=== PATIENT | female | born 1965 | race Caucasian/White ===

== ENCOUNTER → 2017-02-05 | Outpatient (CLI) | payer OTHER | LOC: FIMAGING 14:31 | DX: Z12.31 Encounter for screening mammogram for malignant neoplasm of breast (principal) | CPT/HCPCS: G0202 ==

== ENCOUNTER 2017-06-15 16:26 | Emergency (ER) | payer OTHER ==
[2017-06-15 16:41] VITALS: TEMP 97.9; O2SAT 99
--- NOTE | 2017-06-15 16:56 | CPEKG ---
Heart Rate: 60 RR Interval: 1000 P-R Interval: 176 QRSD Interval: 86 QT Interval: 424 QTC Interval: 424 P Malden: 73 QRS Malden: 65 T Wave Malden: 57 EKG Severity - ABNORMAL ECG - EKG Impression: SINUS RHYTHM Electronically Signed By: Dary Lin 15-Jun-2017 23:18:43
[2017-06-15] MEDS ORDERED: DIAZEPAM 10 MG/2 ML SYR IVP ONE (17:25)
--- NOTE | 2017-06-15 17:26 | EDPHY ---
H & P Stated Complaint: hx menieres became dizzy/nausea/tingling in bilat arms and feet/now resolve Time Seen by Provider: 06/15/17 17:00 HPI/ROS: CHIEF COMPLAINT: Dizziness, bilateral extremity numbness HISTORY OF PRESENT ILLNESS: The patient is a 51 y/o female with a history of M nire's disease complaining of waxing and waning worsening dizziness onset around 14:30 today, about 3.5 hours ago. She's experienced dizziness and vertigo in the past that usually resolves after about 1 minute, but the episodes today did not resolve and became more severe over time. She then developed bilateral hand and toe tingling that was also present around her mouth prompting her to come to the ED. The paresthesias lasted for a few minutes before spontaneously resolving and she does not think she was hyperventilating at that time. She was working around the house when her symptoms started and she cannot identify a specific preceding movement that precipitated her symptoms. Her dizziness has continued and is aggravated with any movement of her head or eyes and alleviated by lying still. She took Dramamine without alleviation. She otherwise felt well today and has been eating and drinking normally. REVIEW OF SYSTEMS: Constitutional: No fever, no chills Eyes: No visual changes ENT: No sore throat Respiratory: No cough, no shortness of breath Cardiac: No chest pain Gastrointestinal: No nausea, no vomiting, no abdominal pain Genitourinary: No hematuria, no dysuria Musculoskeletal: No leg pain or swelling Skin: No rash Neurological: see HPI Psychiatric: No depression - Personal History LMP (Females 10-55): Post Menopausal Current Tetanus/Diphtheria Vaccine: Yes - Medical/Surgical History Hx Asthma: No Hx Chronic Respiratory Disease: No Hx Diabetes: No Hx Cardiac Disease: No Hx Renal Disease: No Hx Cirrhosis: No Hx Alcoholism: No Hx HIV/AIDS: No Hx Splenectomy or Spleen Trauma: No Other PMH: menieres disease/vertigo - Social History Smoking Status: Never smoked Additional Social History: Nonsmoker. at bedside. Lives in [place]. PCP: Dr. Jimenez. - Physical Exam Exam: General Appearance: Alert, no distress Eyes: Pupils equal and round, no conjunctival pallor or injection, no nystagmus. ENT, Mouth: Mucous membranes moist Neck: Normal inspection Respiratory: Lungs are clear to auscultation Cardiovascular: Regular rate and rhythm Gastrointestinal: Abdomen is soft and non- tender Neurological: A&O, nonfocal, normal gait Skin: Warm and dry, no rash Extremities: Nontender, no pedal edema Psychiatric: Mood and affect normal Constitutional: Initial Vital Signs Temperature (C) 36.6 C 06/15/17 16:38 Heart Rate 60 06/15/17 16:38 Respiratory Rate 20 06/15/17 16:38 Blood Pressure 141/91 H 06/15/17 16:38 O2 Sat (%) 99 06/15/17 16:38 O2 Delivery Mode Room Air Allergies/Adverse Reactions: No Known Allergies Allergy (Unverified 06/15/17 16:37) Home Medications: Medication Instructions Recorded Bonine 06/15/17 Diazepam [Valium 10 MG (*)] 10 mg PO Q8 PRN #10 tab 06/15/17 Diazide 06/15/17 Medical Decision Making ED Course/Re-evaluation: This is a healthy 51 y/o female with a history of Mnire's disease who presents with a 3.5-hour history of vertiginous symptoms and a brief episode of now resolved paresthesias in both hands, toes, and around her mouth. Apart from being reluctant to move her head, her exam is unremarkable. Her symptoms are consistent with positional vertigo and hyperventilation. Plan for IV, labs, EKG , and symptom management. Since she already took Dramamine today, we will hold Meclizine. 2.5mg IV Valium administered. The 12 lead EKG was interpreted by myself. Sinus rhythm rate 60. See hard copy and/or "tracemaster" electronic copy for interpretation. 1820: Reevaluated patient. She is feeling improved after the Valium. She will be discharged home with standard vertigo care and follow up instructions. Return precautions given. She is comfortable with this plan. Differential Diagnosis: Dizziness including but not limited to peripheral and central causes of vertigo , orthostatic causes including dehydration, and blood loss. - Data Points Laboratory Results: Laboratory Results 06/15/17 16:59 06/15/17 16:59 06/15/17 06/15/17 16:59 16:59 WBC 8.37 10^3/uL 10^3/uL (3.80-9.50) RBC 4.18 10^6/uL 10^6/uL (4.18-5.33) Hgb 13.4 g/dL g/dL (12.6-16.3) Hct 38.5 % % (38.0-47.0) MCV 92.1 fL fL (81.5-99.8) MCH 32.1 pg pg (27.9-34.1) MCHC 34.8 g/dL g/dL (32.4-36.7) RDW 11.8 % % (11.5-15.2) Plt Count 302 10^3/uL 10^3/uL (150-400) MPV 8.9 fL fL (8.7-11.7) Neut % (Auto) 67.6 % % (39.3-74.2) Lymph % (Auto) 22.6 % % (15.0-45.0) Izard % (Auto) 7.9 % % (4.5-13.0) Eos % (Auto) 0.8 % % (0.6-7.6) Baso % (Auto) 0.7 % % (0.3-1.7) Nucleat RBC Rel Count 0.0 % % (0.0-0.2) Absolute Neuts (auto) 5.66 10^3/uL 10^3/uL (1.70-6.50) Absolute Lymphs (auto) 1.89 10^3/uL 10^3/uL (1.00-3.00) Absolute Monos (auto) 0.66 10^3/uL 10^3/uL (0.30-0.80) Absolute Eos (auto) 0.07 10^3/uL 10^3/uL (0.03-0.40) Absolute Basos (auto) 0.06 10^3/uL 10^3/uL (0.02-0.10) Absolute Nucleated RBC 0.00 10^3/uL 10^3/uL (0-0.01) Immature Gran % 0.4 % % (0.0-1.1) Immature Gran # 0.03 10^3/uL 10^3/uL (0.00-0.10) Sodium 134 mEq/L mEq/L (134-144) Potassium 3.3 mEq/L L mEq/L (3.5-5.2) Chloride 97 mEq/L mEq/L (97-110) Carbon Dioxide 24 mEq/l mEq/l (22-31) Anion Gap 13 mEq/L mEq/L (8-16) BUN 21 mg/dL mg/dL (7-23) Creatinine 0.9 mg/dL mg/dL (0.6-1.0) Estimated GFR > 60 Glucose 93 mg/dL mg/dL (70-100) Calcium 9.6 mg/dL mg/dL (8.5-10.4) Medications Given: Discontinued Medications Diazepam (Valium Injection) 2.5 mg IVP EDNOW ONE Stop: 06/15/17 17:26 Last Admin: 06/15/17 17:34 Dose: 2.5 mg Departure - Departure Disposition: Home, Routine, Self-Care Clinical Impression: Vertigo Condition: Good Instructions: Meniere Disease (ED), Vertigo (ED) Additional Instructions: 1. Take Meclizine as directed on the packaging for symptoms of vertigo. 2. Follow up with your primary care provider for unimproved symptoms over the next 2-3 days. 3. Return to the ED for severe headache, weakness or numbness on one side of your body, vision changes, fever, or other worsening of condition. Referrals: Cathy Jimenez MD [Primary Care Provider] - As per Instructions Prescriptions: Diazepam [Valium 10 MG (*)] 10 mg PO Q8 PRN #10 tab PRN Reason: vertigo Report Scribed for: Dary Lin Report Scribed by: Lillie Ng Date of Report: 06/15/17 Time of Report: 17:15 Physician Review and Approval Statement: 06/15/17 17:15 Portions of this note were transcribed by a medical anthropology director. I personally performed a history, physical exam, medical decision making, and confirmed accuracy of information the transcribed note.
[2017-06-15 17:53] LABS: % IMMATURE GRANULYOCYTES 0.4 % (0.0-1.1); ABSOLUTE IMMATURE GRANULOCYTES 0.03 10^3/uL (0.00-0.10); ADD DIFF? NO; ADD MORPH? NO; ADD SCAN? NO; ATYPICAL LYMPHOCYTE FLAG 10 (0-99); FRAGMENT RBC FLAG 0 (0-99); HEMATOCRIT 38.5 % (38.0-47.0); HEMOGLOBIN 13.4 g/dL (12.6-16.3); LEFT SHIFT FLG 0 (0-99); LIPEMIA HEMOLYSIS FLAG 90 (0-99); MEAN CELL HEMOGLOBIN 32.1 pg (27.9-34.1); MEAN CELL HEMOGLOBIN CONCENTR. 34.8 g/dL (32.4-36.7); MEAN CELL VOLUME 92.1 fL (81.5-99.8); MEAN PLATELET VOLUME 8.9 fL (8.7-11.7); PLATELET CLUMPS FLAG 0 (0-99); PLATELET COUNT 302 10^3/uL (150-400); RED BLOOD CELL COUNT 4.18 10^6/uL (4.18-5.33); RED CELL DISTRIBUTION WIDTH 11.8 % (11.5-15.2)
[2017-06-15 17:59] LABS: ANION GAP 13 mEq/L (8-16); CALCIUM 9.6 mg/dL (8.5-10.4); CARBON DIOXIDE 24 mEq/l (22-31); CHLORIDE 97 mEq/L (97-110); CREATININE 0.9 mg/dL (0.6-1.0); GLOMERULAR FILTRATION RATE > 60; GLUCOSE 93 mg/dL (70-100); POTASSIUM 3.3 mEq/L (3.5-5.2); SODIUM 134 mEq/L (134-144)
[2017-06-15 18:32] VITALS: BP 118/60; PULSE 75; RESP 14
== END 2017-06-15 18:31 | disposition home or self-care (01) ==
DX: R42 Dizziness and giddiness (principal)
CPT/HCPCS: 96374

== ENCOUNTER → 2017-10-17 | Outpatient (CLI) | payer OTHER | LOC: FIMAGING 13:37 | PROVIDERS: ATTEND Family Medicine | DX: M79.604 Pain in right leg (principal); E04.2 Nontoxic multinodular goiter ==